=== PATIENT | female | born 1945 | race Caucasian/White ===

== ENCOUNTER → 2018-06-10 08:21 | Outpatient (CLI) | payer MEDICARE, OTHER, SELFPAY ==
--- NOTE | 2018-06-10 | IMM_PTH ---
PATIENT: DANNIE BAUM LOC: [facility]#:[id number] AGE/SX: 80/F ROOM: RE06/10/[address]: Dr. Prabhjot Beckham MD : 1945 BED: DIS: SPEC #: [id number] RECD: 06/11/18 14:05 STATUS: SUZIE REQ #: [id number] JAYLIN: 06/10/18 00:[address]: Prabhjot Beckham DEPT: IMMUNOHISTOCHEMISTRY RECD BY: Florecita Ford ENTERED: 06/11/18 14:06 SP TYPE: IMMUNO OTHR DR: Dr. Hosea Amin MD Tissues: Right breast, NOS Procedures: CALPONIN-1 (add) CK8 (add) E-CAD (add) HER2 EMMA (add) IL (add) P40 (add) ER (initial) PHYSICIAN & INSTITUTION [place] [id number] SPECIMEN INFORMATION: Tissue Source: Right breast Clinical Info: Right [facility] microcalcifications Specimen Number: [id number] #4 CPT code: 32967, 94734 x3, 67089 x3 METHODOLOGY: Deparaffinized sections of prefer/formalin-fixed tissue or PAP/DQ stained slides are incubated with monoclonal/polyclonal antibodies/oligonucleotide probes. Localization is made via biotin free immunoperoxidase method. Appropriate controls are performed and reacted as expected. Results on target cell population are indicated in the following table: RESULTS: ANTIBODY / CLONE RESULT Block 4 E-Cad (ECH-6) positive CK8 (76amscY16) positive P40 (BC28) positive Calponin-1 (XO914E) positive MORPHOMETRIC ANALYSIS ER (clone 6F11) positive (>95%, moderate to strong) IL (clone 16/1E2) positive (54%, moderate to weak) Her-2Neu (clone CB11) negative (0) The prognostic test for HER2 is performed on formalin-fixed paraffin embedded tissue. A 3+ (positive) staining pattern is defined as intense, homogeneous, complete, circumferential membranous staining in >10% of contiguous tumor cells. A similar weak (2+) staining pattern is interpreted as equivocal. BARBARA follow-up testing is recommended for all equivocal cases. Positivity/negativity for ER/IL is reported if > or < 1% of the tumor cells are immuno- reactive, respectively. The ASCO/CAP criteria is used for scoring. Reference: Journal of Clinical Oncology, 2013; 31:9588-2175 & 2010; 16:3573-8721. Duration of fixation: 10 Hrs; Sample Adequate: Yes. These assays have not been validated on decalcified tissues. Results should be interpreted with caution given the likelihood of false negativity on decalcified specimens. These tests were developed and their performance characteristics determined by [facility]. They may not have been cleared or approved by the U.S. Food and Drug Administration. The FDA has determined that such clearance or approval is not necessary. 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 SJ:shikha 06/12/18
--- NOTE | 2018-06-10 09:15 | BRBX_PTH ---
PATIENT: DANNIE BAUM LOC: [facility] U#:[id number] AGE/SX: 80/F ROOM: RE06/10/[address]: Dr. Prabhjot Beckham MD : 1945 BED: DIS: SPEC #: [id number] RECD: 06/10/18 11:39 STATUS: SUZIE GEREMIAS #: [id number] JAYLIN: 06/10/18 09:[address]: Prabhjot Beckham DEPT: SURGICAL PATHOLOGY RECD BY: Vic Becerra ENTERED: 06/10/18 13:43 SP TYPE: BREAST BX OTHR DR: Dr. Hosea Amin MD Tissues: Right breast, NOS Procedures: Surgery Specimen Level IV HEADER OPERATION: Right breast stereotactic needle core biopsy PRE-OP DIAGNOSIS: Right UOQ microcalcifications TISSUE SUBMITTED: Right breast ISCHEMIC TIME: 2 minutes FIXATION TIME: 10 hours MICROSCOPIC DIAGNOSIS Right breast, upper outer quadrant microcalcifications, stereotactic needle core biopsy: Ductal carcinoma in situ with the following characteristics: Pattern ? solid and comedo Nuclear grade - high Necrosis ? present, central (expansive comedo necrosis). Calcifications - present See comment. WILLIE:shikha 06/11/18 COMMENT Immunohistochemistry ([id number]) supports the above diagnosis. ER/TN/Cbj4utz studies are being performed on sections of tumor and the results from this study will be reported separately ([id number]). MICROSCOPIC DESCRIPTION Slides are reviewed. GROSS DESCRIPTION Received in fixative is one container labeled with the patient's name and designated right breast. The specimen consists of multiple fragments of keating-yellow fibroadipose tissue mixed with blood clot that in aggregate measure 5 x 3 x 0.6 cm. The entire specimen is submitted in four cassettes. / WILLIE:shikha 06/10/18 TC:0 CPT: 19889
--- NOTE | 2018-06-11 19:46 | PCM.OPRPT ---
Report of Operation Date of Procedure: 06/10/18 Pre-Operative Diagnosis: right breast microcalcifications upper outer quadrant Post-Operative Diagnosis: right breast microcalcifications-upper outer quadrant, successful stereotactic biopsy, significant hematoma Surgery/Procedure Performed:: right vacuum-assisted core needle biopsy. Stereotactic-based, gel rosario clip placement. Specimen radiograph tank tester: None Type of Anesthesia:: Local Specimen's removed: right breast Description of Procedure: The patient was brought to the stereotactic suite and informed of the plan course of events. The right breast was positioned in the CC position on the [place] stereotactic table. Mammographic image demonstrated the area of abnormality to be located in the center of the radiograph. Stereotactic images were then obtained which demonstrated good positioning of the abnormality for biopsy with good stroke rosario parameters. The breast was cleaned with Betadine. 1 percent lidocaine was used to anesthetize the skin and a small stab incision made. An 8-gauge mammotome needle was placed into the pre-fire position. Stereotactic images demonstrated good positioning around the planned biopsy site. Local anesthetic injected deeply in the breast. The needle was deployed. Post deployment images demonstrated good positioning of the planned biopsy site. Multiple vacuum-assisted samples were obtained and xwelgg-noo-engxs fashion. Specimen radiograph demonstrated micro-calcifications in the sample. is significant bleeding during the biopsy procedure.A gel marker clip was deployed. Post biopsy images demonstrated good position of the clip relative the biopsy cavity. The breast was removed from compression. sutures were used to close the skin incision. Pressure was held for 30 minutes on the biopsy tract. Post procedure mammogram images were obtained.
--- NOTE | 2018-06-11 19:49 | OP.PCM_ITS ---
Report of Operation Date of Procedure: 06/10/18 Pre-Operative Diagnosis: right breast microcalcifications upper outer quadrant Post-Operative Diagnosis: right breast microcalcifications-upper outer quadrant , successful stereotactic biopsy, significant hematoma Surgery/Procedure Performed:: right vacuum-assisted core needle biopsy. Stereotactic-based, gel rosario clip placement. Specimen radiograph home stereo equipment installer: None Type of Anesthesia:: Local Specimen's removed: right breast Description of Procedure: The patient was brought to the stereotactic suite and informed of the plan course of events. The right breast was positioned in the CC position on the [place] stereotactic table. Mammographic image demonstrated the area of abnormality to be located in the center of the radiograph. Stereotactic images were then obtained which demonstrated good positioning of the abnormality for biopsy with good stroke rosario parameters. The breast was cleaned with Betadine. 1 percent lidocaine was used to anesthetize the skin and a small stab incision made. An 8-gauge mammotome needle was placed into the pre-fire position. Stereotactic images demonstrated good positioning around the planned biopsy site. Local anesthetic injected deeply in the breast. The needle was deployed. Post deployment images demonstrated good positioning of the planned biopsy site. Multiple vacuum-assisted samples were obtained and around-the- clock fashion. Specimen radiograph demonstrated micro-calcifications in the sample. is significant bleeding during the biopsy procedure.A gel marker clip was deployed. Post biopsy images demonstrated good position of the clip relative the biopsy cavity. The breast was removed from compression. sutures were used to close the skin incision. Pressure was held for 30 minutes on the biopsy tract. Post procedure mammogram images were obtained.
== END ==
PROVIDERS: Family Provider Internal Medicine; PCP Internal Medicine; Visit Provider Surgery
DX: D05.11 Intraductal carcinoma in situ of right breast (principal); K21.9 Gastro-esophageal reflux disease without esophagitis; F41.1 Generalized anxiety disorder; E78.5 Hyperlipidemia, unspecified; M19.90 Unspecified osteoarthritis, unspecified site; E11.49 Type 2 diabetes mellitus with other diabetic neurological complication; Z87.442 Personal history of urinary calculi; Z79.51 Long term (current) use of inhaled steroids; Z79.82 Long term (current) use of aspirin; Z79.84 Long term (current) use of oral hypoglycemic drugs; Z79.899 Other long term (current) drug therapy
CPT/HCPCS: 19081; 88305; 88341; 88342; J7050; A4648

== ENCOUNTER 2018-08-12 06:49 | Day surgery (SDC) | payer MEDICARE, OTHER, SELFPAY ==
--- NOTE | 2018-08-12 | BREAST_PTH ---
PATIENT: DANNIE BAUM LOC: [facility] U#:[id number] AGE/SX: 73/F ROOM: RE08/12/[address]: Dr. Prabhjot Beckham MD : 1945 BED: DIS: 08/12/2018 SPEC #: [id number] RECD: 08/12/18 10:13 STATUS: SUZIE GEREMIAS #: [id number] JAYLIN: 08/12/18 00:[address]: Prabhjot Beckham DEPT: SURGICAL PATHOLOGY RECD BY: Florecita Ford ENTERED: 08/12/18 11:21 SP TYPE: BREAST OTHR DR: Dr. Hosea Amin MD Tissues: Right breast, NOS Procedures: Surgery Specimen Level V HEADER OPERATION: Right breast biopsy, NL PRE-OP DIAGNOSIS: Right breast ductal carcinoma in situ TISSUE SUBMITTED: Right breast lumpectomy with wire - sent first for mammogram, then to pathology for gross exam; single suture - medial, double suture - inferior, close to clip MICROSCOPIC DIAGNOSIS Right Breast, lumpectomy with needle localizstion: Extensive change consistent with previous biopsy site. Negative for residual ductal carcinoma in situ. See comment. COMMENT DUCTAL CARCINOMA IN SITU SUMMARY (lumpectomy specimen and previous core biopsy [id number]): Specimen - partial breast and previous stereotactic core biopsy. Procedure - excision w/without wire-guided localization. Lymph node sampling - no lymph node submitted Specimen integrity - single intact specimen. Specimen size - lumpectomy specimen - 8 x 7 x 3 cm - previous biopsy - 5 x 3 x 0.6 cm Specimen laterality - right Tumor site - UOQ microcalcifications, as per clinical information Size (extent) of DCIS - 0.8 x 0.4 cm (measured microscopically in previous biopsy specimen) Number of blocks with DCIS - 2 Number of blocks examined - 16 ( lumpectomy specimen and previous biopsy) Histologic type - ductal carcinoma in situ. Architectural patterns - solid and comedo Nuclear grade - Grade 3 (high) Necrosis - present, central (expansive comedo necrosis). Margins - margins uninvolved by DCIS. Distance from closest margin - see comment Treatment effect - no known presurgical therapy. Lymph nodes - no lymph nodes are submitted. Additional Pathologic Findings - extensive changes consistent with previous biopsy site. Ancillary Studies from previous specimen ([id number] / [id number]): ER - positive (>95%, moderate to strong) VA - positive (54%, moderate to weak) Her2 kimberly ([facility]) - negative (0) Her2 by FISH - not performed. Microcalcifications - present in DCIS. Clinical history - Please make reference to previous specimen ([id number]) right breast, upper outer quadrant microcalcifications, stereotactic needle core biopsy with diagnosis of ductal carcinoma in situ. Pathologic Staging: pTis(DCIS) pNx Mx The above summary is in compliance with [employer] [place] [employer] (CAP) Cancer Protocols Checklist and [place] [employer] Committee on Cancer (AJCC), Staging Manual, 8th Ed. Distance from margin cannot be assessed as ductal carcinoma in situ present only in the previous biopsy specimen and lumpectomy specimen is negative for carcinoma and shows large biopsy cavity. This case is discussed with Dr. Prince on 08/15/18. MICROSCOPIC DESCRIPTION Slides are reviewed. GROSS DESCRIPTION Received fresh for intraoperative consultation labeled with the patient's name is a specimen designated right breast lumpectomy. The specimen consists of a piece of fibroadipose tissue with needle localization measuring 8 x 7 x 3 cm. A piece of skin is also noted anteriorly measuring 2.5 x 0.8 cm. The specimen is oriented as follows: single suture - medial, double suture - inferior close to clip. The specimen is inked as follows: anterior - yellow, posterior - black, superior - blue, inferior - green, medial - red and lateral - orange. Sections reveal a biopsy cavity measuring 5.5 x 4 x 3 cm. This biopsy cavity is 0.3 cm away from the closest superior margin. No obvious mass lesion is identified. No obvious clip is also noted. The specimen gross is reviewed along with surgeon in person. Sections of the rest of the specimen reveal keating-yellow adipose cut surfaces mixed with fibrous area. No mass lesion is identified. Charhouse Worker sections are submitted in 12 cassettes as follows: 1 - perpendicular medial, lateral and inferior margins, 2 - perpendicular inferior, posterior and superior margins, 3 - biopsy cavity and skin, 411 - biopsy cavity with surrounding area, 12 - door to door sales representative section from the other area. Sections will be submitted after additional fixation. / WILLIE:shikha 08/13/18 TC: 5 CPT: 33762, 50716
[2018-08-12 07:20] VITALS: BP 117/71; PULSE 76; RESP 16; TEMP 36.9; O2SAT 96; BMI 32.5
--- NOTE | 2018-08-12 07:21 | BI_ITS ---
SURGICAL BREAST SPECIMEN RADIOGRAPH CLINICAL: Document presence of tissue clip marker in biopsy specimen. FINDINGS: Specimen shows presence of tissue clip marker. Electronically Signed: Arie Garcia MD at 10:37 EDT Tel [phone], Service support , BI/Breast Biopsy Specimen
[2018-08-12 08:10] LABS: Bedside Glucose 139 mg/dL (70-110)
[2018-08-12] MEDS: Bupivacaine Mpf 0.5% 30 ML VIAL (08:56)
[2018-08-12] MEDS: Cefazolin 2 GM in 0.9% Normal Saline 100 ML IV (09:20)
--- NOTE | 2018-08-12 10:26 | PCM.OPRPT ---
Report of Operation Date of Procedure: 08/12/18 Pre-Operative Diagnosis: right breast DCIS Post-Operative Diagnosis: right breast DCIS, successful biopsy Surgery/Procedure Performed:: right needle localization lumpectomy code enforcement inspector: Uziel Wilson Type of Anesthesia:: General Anesthesiologist: Bhaskar Jarquin - ASA2 Specimen's removed: right breast lumpectomy Estimated Blood Loss (mL): 50 Fluids Replaced: 900 Description of Procedure: The patient was brought to the stereotactic suite. Her right breast was positioned in the cc approach in the [place] stereotactic table. Mammogram image demonstrated the clip to be nicely centered. Stereotactic images were obtained. Planned placement of the wire was marked and an additional 15 mm of depth added to the prescribed depth. The breast was then cleaned with Betadine. Local anesthetic was injected in the breast and a 15 Kopan's wire was inserted to the prescribed depth. Stereotactic images demonstrated good positioning of the wire. The wire was deployed as an needle was withdrawn. Stereotactic images demonstrated good positioning of the wire. The breast was marked compression the wire cut to length and taped. CC and MLO views were then obtained. The patient was then brought to the operative suite. Sign was performed verifying patient, site, position, SCIP antibiotic prophylaxis-2 g of Ancef and DVT prophylaxis with SCDs. Following an LMA anesthesia, Ultrasound was then used to evaluate the abnormality and the limits of the mass and planned resection were marked on the skin using ultrasound guidance. Following this, the patients right breast was then prepped and draped in the usual fashion. Timeout was performed verifying patient, site, position. The wire entered the breast at the ??? position. An elliptical incision was made and dissection carried down to subcutaneous breast tissue and then flared out such that a good margin would be obtained in all axes. A large hematoma was superficial to the clip. This was dissected entirely. When the specimen was removed, the wire came from the superior superficial site. A solitary suture was placed at the medial sit.e A double tail suture was placed along the inferior aspect of the specimen. The specimen was oriented on a radiographic plate and sent for specimen radiograph. While were awaiting specimen radiograph, the cavity was irrigated with sterile water and aspirated. There was noted to be good hemostasis. 4 medium clips were placed at the deep cavity margins and 4 small clips at the superficial cavity margins oriented the cavity for future radiation treatment. Subcutaneous breast tissue closed with interrupted 3-0 Vicryl suture. Skin was closed with a running 4-0 Biosyn subcuticular suture. Specimen radiograph demonstrated good position of the clip relative to the biopsy site. The specimen was then brought to the pathology department. I oriented the specimen with the pathologist. Gross margins were examined and fdemonstrated no specific suspicious areas.. Given this, Dermabond was applied to the skin the patient was awakened and brought to recovery in stable condition. - Admit VTE Documentation VTE Present on Admission: No VTE Mechan Device Prophylaxis: SCD's VTE Pharm Prophylaxis ordered?: No
[2018-08-12 10:40] VITALS: BP 117/71; BP 118/59; PULSE 72; RESP 16; TEMP 36.2; O2SAT 97
--- NOTE | 2018-08-12 10:41 | DCINST_ITS ---
Discharge Diet: No Restrictions Discharge Activity: Return to Normal Activity May shower in (days): 3 Remove Dressing in (days):: 3 - Leave Dermabond in place. Allergies/Adverse Reactions: Allergies No Known Allergies Allergy (Verified 07/13/15 05:45) Medications to take at Discharge RX: Calcium Carbonate/Vitamin D3 [Calcium 600-Vit D3 800 [place]] 1 each PO DAILY 06/25/15 RX: Lisinopril [Zestril] 5 mg PO DAILY 06/25/15 RX: Metformin HCl [Glucophage] 1,000 mg PO DAILY 06/25/15 RX: Multivitamins,Therapeutic [Multivitamin] 1 tablet PO DAILY 06/25/15 RX: Paroxetine HCl [Paxil] 10 mg PO DAILY 06/25/15 RX: Ranitidine [Zantac] 150 mg PO BIDCM 06/25/15 RX: Pravastatin [Pravachol] 40 mg PO QHS 07/13/15 RX: Gabapentin [Neurontin] 100 mg PO DAILY 03/26/17 RX: Dulaglutide [Trulicity] 1.5 mg SQ WEBER 08/05/18 Oxycodone HCl/Acetaminophen [Percocet 5/325] 1 tab PO Q4H PRN PRN 7 Days #10 tab 08/12/18 The following prescriptions were given: Oxycodone HCl/Acetaminophen [Percocet 5/325] 1 tab PO Q4H PRN PRN 7 Days #10 tab PRN Reason: Pain Primary Care Physician: Hosea Amin MD [Primary Care Provider] - Test Results: Test results from this visit will be discussed in further detail at your follow- up appointment, if applicable. Please Follow Up With: Prabhjot Beckham MD - [phone] When: Please call for an appointment to be seen in one week.
[2018-08-12 11:00] VITALS: BP 117/71; BP 119/61; PULSE 70; RESP 16; O2SAT 98
[2018-08-12 11:13] VITALS: BP 117/71; BP 121/68; PULSE 66; RESP 16; O2SAT 99
[2018-08-12 11:18] VITALS: BP 117/71; BP 120/68; PULSE 67; RESP 16; TEMP 36.5; O2SAT 97
[2018-08-12 11:56] VITALS: BP 117/71
== END 2018-08-12 12:05 | disposition home or self-care (01) ==
LOC: SDC 06:50 → AC 06:52
PROVIDERS: Family Provider Internal Medicine; PCP Internal Medicine; Visit Provider Surgery
PROC: (CPT 19301; principal; 2018-08-12 08:45)
DX: D05.11 Intraductal carcinoma in situ of right breast (principal); R92.8 Other abnormal and inconclusive findings on diagnostic imaging of breast; K21.9 Gastro-esophageal reflux disease without esophagitis; F41.1 Generalized anxiety disorder; M19.90 Unspecified osteoarthritis, unspecified site; E78.5 Hyperlipidemia, unspecified; E11.49 Type 2 diabetes mellitus with other diabetic neurological complication; D64.9 Anemia, unspecified; Z87.442 Personal history of urinary calculi; Z79.51 Long term (current) use of inhaled steroids; Z79.84 Long term (current) use of oral hypoglycemic drugs; Z79.82 Long term (current) use of aspirin; Z79.899 Other long term (current) drug therapy
CPT/HCPCS: 00400; 19301; 19281; 76098; 82962; 88305; 88307; J7120

== ENCOUNTER → 2020-04-14 14:24 | Outpatient (CLI) | payer MEDICARE, OTHER, SELFPAY ==
[2020-04-14 17:42] LABS: Absolute Lymphocyte Count 1.86 X10^3/uL (0.83-4.51); Absolute Neutrophil Count 4.9 X10^3/uL (2.0-7.7); Basophil# 0.03 X10^3/uL; Basophil% 0.4 % (0-1); Eosinophils% 2.6 % (0-5); Hematocrit 40.4 % (37-47); Hemoglobin 12.4 g/dL (12.0-15.0); Lymphocyte # 1.86 X10^3/ul (4.0); Lymphocyte % 24.5 % (19-41); Mean Corp Hgb Conc 30.7 g/dL (32-36); Mean Corpuscular Hgb 29.7 pg (27.0-32.0); Mean Corpuscular Volume 96.7 fL (81-99); Mean Platelet Vol. 9.6 fl (6.2-12.0); Monocyte# 0.56 X10^3/uL; Monocyte% 7.4 % (0-10); NRBC Flagged by Analyzer 0 % (0-5); Neutrophil # 4.91 X10^3/uL (2.7-7.7); Neutrophil % 64.7 % (47-70); Platelet Count 314 K/mm3 (150-450); RBC Distribution Width CV 13.6 % (11.6-14.6); RBC Distribution Width SD 48.5 fl (35.1-43.9); Red Blood Count 4.18 M/mm3 (4.2-5.4); White Blood Count 7.6 K/mm3 (4.4-11.0)
[2020-04-14 17:58] LABS: ALB/GLOB Ratio 1.1 RATIO (0.9-2.4); AST(SGOT) 17 U/L (15-37); Alanine Aminotransfer ALT/SGPT 22 U/L (13-56); Albumin, Serum 3.9 g/dL (3.2-5.0); Alkaline Phosphatase 99 U/L (45-117); Anion Gap 10 (5-15); BUN 19 mg/dL (7-18); CRP < 2.90 mg/L (0.0-3.0); Calcium,Total 9.5 mg/dL (8.5-10.1); Chloride 105 mmol/L (98-107); Creatinine, Serum 0.86 mg/dL (0.55-1.02); EST Glomerular Filtration Rate 69 mL/min (>60); Est Glom Filt Rate - Afr Amer 83 mL/min (>60); Globulin 3.4 g/dL (2.2-4.2); Glucose 97 mg/dL (74-106); Potassium 3.8 mmol/L (3.5-5.1); Protein, Total 7.3 g/dL (6.4-8.2); Rheumatoid Factor < 10.0 IU/mL (<15); Sodium Level 141 mmol/L (136-145)
[2020-04-14 18:03] LABS: Erythrocyte Sedimentation Rate 17 mm/hr (0-30)
[2020-04-15 09:26] LABS: Hepatitis B Surface Antibody Non-Reactive; Hepatitis B Surface Antigen Non-Reactive (Nonreactive); Hepatitis C Antibody Non-Reactive (Nonreactive)
[2020-04-16 12:07] LABS: SJOGREN'S Anti-SS-A test < 0.2 AI (0.0-0.9); SJOGREN'S Anti-SS-B test < 0.2 AI (0.0-0.9)
[2020-04-16 13:56] LABS: ANTINUCLEAR ANTIBODIES DIRECT Negative (Negative)
[2020-04-19 00:30] LABS: CCP IgG Antibodies 17 units (0-19); Hepatitis B Core AB IgM Negative (Negative)
== END ==
PROVIDERS: PCP Internal Medicine; Referring Provider Internal Medicine Rheumatology; Visit Provider Internal Medicine Rheumatology
DX: M06.4 Inflammatory polyarthropathy (principal); M21.41 Flat foot [pes planus] (acquired), right foot; K21.9 Gastro-esophageal reflux disease without esophagitis; E11.42 Type 2 diabetes mellitus with diabetic polyneuropathy; I10 Essential (primary) hypertension; E78.5 Hyperlipidemia, unspecified; D05.11 Intraductal carcinoma in situ of right breast
CPT/HCPCS: 36415; 80053; 85025; 85652; 86038; 86140; 86200; 86235; 86431; 86705; 86706; 86803; 87340

== ENCOUNTER → 2020-06-03 | Outpatient (CLI) | payer MEDICARE, OTHER, SELFPAY | END | disposition home or self-care (01) | LOC: HPRAD 15:19 | PROVIDERS: PCP Internal Medicine; Referring Provider Chiropractor; Visit Provider Chiropractor | DX: M99.01 Segmental and somatic dysfunction of cervical region (principal) | CPT/HCPCS: 72040 ==